=== PATIENT | male | born 1995 | race African-American/Black ===

== ENCOUNTER 2023-05-08 16:53 | Emergency (ER) | payer SELFPAY ==
[2023-05-08 16:56] VITALS: BP 163/112; PULSE 73; RESP 20; TEMP 36.4; O2SAT 98; BMI 21.7
--- NOTE | 2023-05-08 17:36 | ED.SKABFB ---
HPI - Skin/Abscess/Foreign Bdy General Chief complaint: Skin/Abscess/Foreign Body Stated complaint: Cyst on scalp Time Seen by Provider: 05/08/23 16:57 History of Present Illness HPI narrative: This 27-year-old male has a lump on the side of his head that brings him in here for evaluation. He states that he has not new employer in his insurance is not yet fully in place so he came to the emergency department. He states that he is in good health otherwise. He reports this lump has been present for about 10 years and was rather small at 1st but is very slowly growing. There is never been any drainage or skin changes. He states that it is not painful but now that it is bigger it is bothering him more. He has a approximately 3 cm diameter well-defined bordered lump on the left side of his head. Related Data Home Medications Medication Instructions Recorded Confirmed No Known Home Medications 05/08/23 05/08/23 Allergies Allergy/AdvReac Type Severity Reaction Status Date / Time No Known Drug Allergies Allergy Verified 05/08/23 17:02 Review of Systems Status of ROS: Reports: 10 or more systems reviewed and unremarkable except as noted in History and below Narrative: Constitutional: No fevers, no weight gain or loss. Eyes: No discharge. No vision changes. HENT: No congestion, no sore throat, no ear pain. Cardiovascular: No chest pain, no palpitations. Respiratory: No shortness of breath, no wheezes, no cough. Gastrointestinal: No abdominal pain, no vomiting, no diarrhea. Genitourinary: No dysuria, no hematuria. Musculoskeletal: Normal range of motion. Skin: No rashes, no pruritis. Neurological: No dizziness, weakness, sensory change, speech change. Endo/Heme/Allergies: No bruising or bleeding. No polydipsia. Pysch: no suicidality, no anxiety, no insomnia. All other systems reviewed and are negative. PFSH PFSH Social History Smoking Status: Current every day smoker What tobacco products do you use: cigarettes How often do you have a drink containing alcohol: 2-4 times a month How often do you have six or more drinks on one occasion: Less than monthly AUDIT-C Alcohol total score: 3 Non-prescribed substance use: marijuana (any form) service: No Exam Narrative: Exam Narrative: Constitutional: Well-developed, well-nourished, no acute distress. HEENT: Normocephalic, atraumatic. 3 cm diameter lump that is well-defined border without skin changes and is rather nontender. Neck: Normal range of motion. Nontender. Supple. Heart: Regular. No murmurs. Normal rate. Intact distal pulses. Lungs: Clear to auscultation. No chest discomfort. No wheezes, rhonchi, or rales. Abdomen: Normal bowel sounds. Nontender. No rebound tenderness. Genitalia: Deferred. Back: No midline tenderness. Normal range of motion. Extremities: Normal range of motion. No injury. Skin: Intact. No rash. Warm. No erythema or pallor. Neurologic: No altered sensation. No weakness. Alert and oriented. Psychiatric: No suicidality. No anxiety or depression. No insomnia. Nursing notes and vitals signs are reviewed. Const: Vital Signs, click to edit/add: Vital Signs - 24 hr 05/08/23 16:56 Temperature 97.5 F L Pulse Rate [Right Pulse Oximeter] 73 Respiratory Rate 20 Blood Pressure [Le ft Upper Arm] 163/112 H Pulse Oximetry 98 Oxygen Delivery Me thod Room Air Course Vital Signs Vital signs: Initial Vital Signs Temperature 97.5 F L 05/08/23 16:56 Temperature Source Temporal Artery Scan 05/08/23 16:56 Pulse Rate 73 05/08/23 16:56 Pulse Rhythm Regular 05/08/23 16:56 Respiratory Rate 20 05/08/23 16:56 Blood Pressure 163/112 H 05/08/23 16:56 Blood Pressure Mean 129 H 05/08/23 16:56 Pulse Oximetry 98 05/08/23 16:56 Oxygen Delivery Method Room Air 05/08/23 16:56 Vital Signs Temperature 97.5 F L 05/08/23 16:56 Pulse Rate 73 05/08/23 16:56 Respiratory Rate 20 05/08/23 16:56 Blood Pressure 163/112 H 05/08/23 16:56 Pulse Oximetry 98 05/08/23 16:56 Oxygen Delivery Method Room Air 05/08/23 16:56 Temperature 97.5 F L 05/08/23 16:56 Pulse Rate 73 05/08/23 16:56 Respiratory Rate 20 05/08/23 16:56 Blood Pressure 163/112 H 05/08/23 16:56 Pulse Oximetry 98 05/08/23 16:56 Oxygen Delivery Method Room Air 05/08/23 16:56 MDM - Skin/Abscess/Foreign Bdy MDM Narrative Medical decision making narrative: This patient has a lump on his head that he would like to have removed some time and somehow. I explained that we typically do not do this in the emergency department. I did use bedside ultrasound to evaluate this lump on his head. It is not a collection of fluid like a cyst or an abscess. Additionally there is no evidence of something highly vascular. It appears to be more like a lipoma or inclusion cyst. I did speak with the surgeon on-call, Dr. Bledsoe, who will be glad to see him in the clinic for further evaluation and treatment. Discharge Plan Discharge Clinical Impression: Lipoma of scalp Condition: Unchanged Additional Instructions: follow-up with surgery Clinic for further evaluation and treatment. Call [phone] for appointment. Return if worsening. Prescriptions: No Action No Known Home Medications Stand Alone Forms: [employer] [employer] Info Instructions
== END 2023-05-08 17:45 | disposition home or self-care (01) ==
PROVIDERS: Emergency Provider Emergency Medicine Emergency Medical Services
DX: D17.0 Benign lipomatous neoplasm of skin and subcutaneous tissue of head, face and neck (principal)
CPT/HCPCS: 99283; 99284